=== PATIENT | male | born 1945 | race Caucasian/White ===

== ENCOUNTER 2019-08-29 10:42 | Inpatient (IN) | payer MEDICARE ==
[~2019-08-29] VITALS: Ht 154.9 cm; Wt 117.0 kg
[~2019-08-29 10:42] MED LIST: LIDOcaine 1% W/epiNEPHrine 1:100,000 20ml vial ONE
[2019-08-29] MEDS ORDERED: aspirin 81mg tab.chew PO ONE (10:50)
--- NOTE | 2019-08-29 11:01 | NUR ---
Pt found to be intermittently going into V-tach. Repeat EKG ordered
[2019-08-29 11:02] LABS: BASOPHILS # (AUTO) 0.1 X10'3 (0-0.2); BASOPHILS % (AUTO) 1.3 % (0-1); EOSINOPHILS # (AUTO) 0.2 X10'3 (0-0.9); EOSINOPHILS % (AUTO) 2.2 % (0-6); HEMATOCRIT 28.2 % (42.0-52.0); LYMPHOCYTES # (AUTO) 2.5 X10'3 (1.1-4.8); LYMPHOCYTES % (AUTO) 24.8 % (21-51); MEAN CORPUSCULAR HEMOGLOBIN 27.8 PG (27.0-31.0); MEAN CORPUSCULAR VOLUME 87.1 FL (78-98); MEAN PLATELET VOLUME 8.2 FL (7.4-10.4); MONOCYTES # (AUTO) 0.7 X10'3 (0-0.9); MONOCYTES % (AUTO) 6.4 % (2-12); NEUTROPHILS # (AUTO) 6.7 X10'3 (1.8-7.7); NEUTROPHILS % (AUTO) 65.3 % (42-75); PLATELET COUNT 210 X10'3 (140-440); RED BLOOD COUNT 3.24 X10'6 (4.70-6.10); RED CELL DISTRIBUTION WIDTH 18.4 % (11.5-14.5); WHITE BLOOD COUNT 10.2 X10'3 (4.5-11.0)
--- NOTE | 2019-08-29 11:05 | NUR ---
Following cardioversion, pt lost pulses. CPR initiated.
--- NOTE | 2019-08-29 11:05 | NUR ---
Pt complained of dizziness, then became unrespnosive. Pt in V-tach, and synchronized cardioversion performed.
--- NOTE | 2019-08-29 11:07 | NUR ---
ROSC obtained. Pt now responsive to verbal stimuli.
[2019-08-29] MEDS ORDERED: morphine 4 MG/ML inj SYRINge IV ONE (11:15)
[2019-08-29 11:19] LABS: ALANINE AMINOTRANSFERASE 19 U/L (12-78); ALBUMIN 3.2 G/DL (3.4-5.0); ALBUMIN/GLOBULIN RATIO 0.8 (1.1-1.5); ALKALINE PHOSPHATASE 90 IU/L (46-116); ANION GAP 16 (8-16); ASPARTATE AMINO TRANSFERASE 29 U/L (10-37); BILIRUBIN,TOTAL 0.2 MG/DL (0.1-1.0); BLOOD UREA NITROGEN 88 MG/DL (7-18); BUN/CREATININE RATIO 29.2 (5.4-32.0); CALCIUM 8.3 MG/DL (8.5-10.1); CHLORIDE 98 MMOL/L (99-107); CREATININE 3.01 MG/DL (0.60-1.10); GLUCOSE 211 MG/DL (70-104); SODIUM 137 MMOL/L (135-145); TOTAL CARBON DIOXIDE 22.7 MMOL/L (24-32); eGFR 20 ML/MIN
[2019-08-29] MEDS ORDERED: potassium 10mEq/100ml NS w/LIDOcaine (10mg/bag) IV ONE (11:25)
[2019-08-29 11:26] LABS: MAGNESIUM 2.3 MG/DL (1.5-2.4)
[2019-08-29] MEDS ORDERED: potassium Cl 10 mEq/100mL bag IV ONE (11:35)
[2019-08-29] MEDS: amiodarone/D5 360MG/200ML BAG 200 ML IV SCH ×4 (11:42→20:06)
[2019-08-29] MEDS: amiodarone 150mg/dext, iso-os 100 ML IV ONE ×2 (11:42→13:16)
--- NOTE | 2019-08-29 12:38 | NUR ---
CARMELA Everett at bedside to place central line.
[2019-08-29] MEDS ORDERED: METO25TA6 PO (15:05)
[2019-08-29] MEDS ORDERED: WARF2.5T PO (15:05)
[2019-08-29] MEDS ORDERED: LINA5TAB4 PO (15:05)
[2019-08-29] MEDS ORDERED: INSU100C4 SQ (15:05)
[2019-08-29] MEDS ORDERED: CETI10TA15 PO (15:05)
[2019-08-29] MEDS ORDERED: ASPI-611 PO (15:05)
[2019-08-29] MEDS ORDERED: INSU100V9 SQ (15:05)
[2019-08-29] MEDS ORDERED: LEVO25TA7 PO (15:05)
[2019-08-29] MEDS ORDERED: CHLO473M3 PO (15:05)
[2019-08-29] MEDS ORDERED: PANT-47 PO (15:05)
[2019-08-29] MEDS ORDERED: ATOR40TA71 PO (15:05)
[2019-08-29] MEDS ORDERED: GABA-530 PO (15:05)
[2019-08-29] MEDS ORDERED: CHOL100046 PO (15:05)
[2019-08-29] MEDS ORDERED: ZAR2.5T PO (15:05)
[2019-08-29] MEDS ORDERED: KETO120S6 TOP (15:05)
[2019-08-29] MEDS ORDERED: POTA20TA34 PO (15:05)
[2019-08-29] MEDS ORDERED: BUME2TAB7 PO (15:05)
[2019-08-29] MEDS ORDERED: WARF-65 PO (15:05)
[2019-08-29] MEDS ORDERED: DOCU-329 PO (15:05)
[2019-08-29] MEDS ORDERED: ALLO100T PO (15:05)
[2019-08-29] MEDS ORDERED: normal saline 1000ml 1,000 ML IV SCH (15:49)
[2019-08-29] MEDS ORDERED: bisacodyl 10mg suppository rectal RC PRN (15:50)
[2019-08-29] MEDS: K and/or MAG REPLACEMENT MC SCH (15:50)
[2019-08-29] MEDS ORDERED: dextrose 50%-water 50ml dispensing syringe IV PRN ×2 (15:50)
[2019-08-29] MEDS ORDERED: acetaminophen 650mg rectal suppository RC PRN (15:50)
[2019-08-29] MEDS ORDERED: MESSAGE TO PHARMACY PO ONE (15:50)
[2019-08-29] MEDS ORDERED: diphenhydrAMINE 25mg capsule PO PRN (15:50)
[2019-08-29] MEDS ORDERED: acetaminophen 325mg tablet PO PRN ×2 (15:50)
[2019-08-29] MEDS ORDERED: potassium Cl 20 mEq SR tablet PO PRN (15:50)
[2019-08-29] MEDS ORDERED: magnesium Cl slow-release 64mg tablet PO PRN (15:50)
[2019-08-29] MEDS ORDERED: potassium CL 10mEq/100ml bag 100 ML IV PRN ×2 (15:50)
[2019-08-29] MEDS ORDERED: mag hydrox/Alum hydrox/simeth 30ml oral suspension PO PRN (15:50)
[2019-08-29] MEDS ORDERED: glucagon, human recombinant 1mg kit SUBCUT PRN (15:50)
[2019-08-29] MEDS ORDERED: magnesium hydroxide 30ml (MOM) UD suspension PO PRN (15:50)
[2019-08-29] MEDS ORDERED: dextrose ORAL solution 15 GM/59 ML bottle PO PRN ×2 (15:50)
[2019-08-29] MEDS ORDERED: magnesium 2GM in 50ml NS 50 ML IV PRN (15:50)
[2019-08-29] MEDS ORDERED: magnesium 4gm in 100ml NS 100 ML IV PRN (15:50)
[2019-08-29] MEDS ORDERED: ondansetron/PF 4mg/2ml inj IV PRN (15:50)
[2019-08-29] MEDS ORDERED: morphine 2 MG/ML inj. syringe IV PRN ×2 (15:50)
[2019-08-29 17:00] VITALS: BP 95/58
--- NOTE | 2019-08-29 17:00 | NUR ---
Patient arrived to the ACCE unit. Patient is alert and oriented. Vitals were taken and patient stable. Rhythm strip completed when patient arrived and accucheck per orders. Noted that the Amiodarone gtt was due to have dose decreased and made this change. Assessment completed and assumed care of patient.
--- NOTE | 2019-08-29 17:34 | NUR ---
PAGER ID: [phone] MESSAGE: Dr. Fernandez-Patient on ACCE rm 310, new admit, pt is SR with PVCs, QT prolonged, went from 0.41 at 1215 to 0.52 1728. FYI. Patient on Amiodarone gtt
--- NOTE | 2019-08-29 17:35 | NUR ---
Noted on Rhythm strip that QT has become prolonged from 0.41 at approx 1200 to 0.52 at approx. [address] Fernandez and he had me contact Dr. Lam as well. Contacted Dr. Lam and left a message for him.
--- NOTE | 2019-08-29 17:45 | NUR ---
Dr. Lam called back and I gave report to him regarding patient with regards to prolonged QT. Dr. Lam gave order to give patient 2Grams of Magnesium.
[2019-08-29] MEDS ORDERED: magnesium 2GM in 50ml NS 50 ML IV ONE (17:55)
--- NOTE | 2019-08-29 18:05 | NUR ---
Problems reprioritized. Patient report given, questions answered & plan of care reviewed with ELLIE Houser.
[2019-08-29 18:24] VITALS: BP 124/54
--- NOTE | 2019-08-29 18:36 | NUR ---
Dr. Lam notified r/t 1.trops critical lab 2.86. expected no new orders. and no more trops drawn. 2. chest pain 07/07 new orders. nitro paste 2 inches for 12 hours and then remove. ok to give morphine now instead of PO pain medication norco.
[2019-08-29] MEDS ORDERED: nitroGLYCERIN 1gm ointment UD TP ONE (18:45)
[2019-08-29] MEDS: metoprolol tartrate 12.5mg (1/2 tablet) PO SCH (20:00)
--- NOTE | 2019-08-29 20:00 | NUR ---
Dr. Arias, notified, r/t elongated QT .52 pt currently on amiodarone drip 3rd bag at 16.67 ml/hr. new orders hold for 4 hours. will continue to monitor.
[2019-08-29] MEDS: pantoprazole 40mg Tablet.DR PO SCH (20:15)
[2019-08-29] MEDS: gabapentin 100mg capsule PO SCH (20:15)
[2019-08-29] MEDS: bumetanide 1mg tablet PO SCH (20:16)
[2019-08-29] MEDS: insulin glargine (Lantus) pen - multi-dose SQ SCH (20:40)
[2019-08-29] MEDS: HYDROcodone/acetaminophen 10/325mg tab PO PRN (20:52)
[2019-08-29] MEDS ORDERED: warfarin 1mg tablet PO ONE (21:00)
[2019-08-29] MEDS ORDERED: warfarin 1mg tablet PO SCH (21:00)
[2019-08-29 22:00] VITALS: BP 115/50
--- NOTE | 2019-08-30 01:03 | NUR ---
Dr. Arias notified. r/t after 4 hours hold of amiodarone drip new finding QT decreased to .48. pt denies chest pain. amiodarone drip d/c. will continue to monitor for arrhythmias. pt use c- pap at night, new orders cpap at night.
[2019-08-30 02:22] LABS: BASOPHILS # (AUTO) 0.1 X10'3 (0-0.2); EOSINOPHILS # (AUTO) 0.2 X10'3 (0-0.9); EOSINOPHILS % (AUTO) 2.4 % (0-6); HEMATOCRIT 23.3 % (42.0-52.0); HEMOGLOBIN 7.5 g/dl (14.0-17.9); LYMPHOCYTES % (AUTO) 14.5 % (21-51); MEAN CORPUSCULAR HEMOGLOBIN 27.7 PG (27.0-31.0); MEAN CORPUSCULAR HGB CONC 32.2 g/dL (33.0-36.5); MEAN CORPUSCULAR VOLUME 86.1 FL (78-98); MEAN PLATELET VOLUME 8.1 FL (7.4-10.4); MONOCYTES # (AUTO) 0.5 X10'3 (0-0.9); NEUTROPHILS # (AUTO) 5.4 X10'3 (1.8-7.7); NEUTROPHILS % (AUTO) 75.1 % (42-75); PLATELET COUNT 157 X10'3 (140-440); RED CELL DISTRIBUTION WIDTH 18.5 % (11.5-14.5); WHITE BLOOD COUNT 7.2 X10'3 (4.5-11.0)
[2019-08-30 02:28] LABS: ALANINE AMINOTRANSFERASE 26 U/L (12-78); ALBUMIN 2.8 G/DL (3.4-5.0); ALBUMIN/GLOBULIN RATIO 0.8 (1.1-1.5); ALKALINE PHOSPHATASE 79 IU/L (46-116); ANION GAP 11 (8-16); ASPARTATE AMINO TRANSFERASE 34 U/L (10-37); BILIRUBIN,TOTAL 0.3 MG/DL (0.1-1.0); BLOOD UREA NITROGEN 86 MG/DL (7-18); CALCIUM 8.3 MG/DL (8.5-10.1); CHLORIDE 99 MMOL/L (99-107); CHOL/HDL RATIO 3.1 (0.00-4.99); CHOLESTEROL 97 MG/DL (0-200); CREATININE 2.87 MG/DL (0.60-1.10); GLUCOSE 181 MG/DL (70-104); HDL CHOLESTEROL 31 MG/DL (35-60); LDL CHOLESTEROL 55 MG/DL (50-100); MAGNESIUM 2.7 MG/DL (1.5-2.4); PHOSPHORUS 5.8 MG/DL (2.3-4.5); POTASSIUM 3.2 MMOL/L (3.5-5.1); SODIUM 136 MMOL/L (135-145); TOTAL CARBON DIOXIDE 26.2 MMOL/L (24-32); TOTAL PROTEIN 6.4 G/DL (6.4-8.2); TRIGLYCERIDES 83 MG/DL (20-135); eGFR 22 ML/MIN
[2019-08-30 02:47] VITALS: BP 135/39
[2019-08-30] MEDS: potassium Cl 20 mEq SR tablet PO PRN ×3 (02:55→16:48)
[2019-08-30 06:00] VITALS: BP 115/56
--- NOTE | 2019-08-30 06:00 | NUR ---
I have received report from Susan ARGUETA and had the opportunity to ask questions and assume patient care.
--- NOTE | 2019-08-30 06:22 | NUR ---
Problems reprioritized. Patient report given, questions answered & plan of care reviewed with Rafael ARGUETA. Bedside report given
[2019-08-30] MEDS: aspirin 81mg tablet.DR PO SCH (07:26)
[2019-08-30] MEDS: bumetanide 1mg tablet PO SCH ×2 (07:31→20:21)
[2019-08-30] MEDS: allopurinol 100mg tablet PO SCH (07:31)
[2019-08-30] MEDS: pantoprazole 40mg Tablet.DR PO SCH ×2 (07:31→20:21)
[2019-08-30] MEDS: metolazone 2.5mg tablet PO SCH (07:31)
[2019-08-30] MEDS: levoTHYROXINE 25mcg tablet PO SCH (07:31)
[2019-08-30] MEDS: vitamin D (cholecalciferol) 1,000 unit tablet PO SCH (07:31)
[2019-08-30] MEDS: atorvastatin 20mg tablet PO SCH (07:31)
[2019-08-30] MEDS: metoprolol tartrate 12.5mg (1/2 tablet) PO SCH ×2 (07:32→20:20)
[2019-08-30] MEDS: docusate sod 250mg capsule PO SCH (07:32)
[2019-08-30] MEDS: K and/or MAG REPLACEMENT MC SCH (08:00)
[2019-08-30] MEDS ORDERED: non-formulary drug (Aspirin (Aspir 81) 1 TAB) PO SCH (08:00)
[2019-08-30] MEDS: amiodarone 200mg tablet PO SCH ×2 (08:20→20:21)
[2019-08-30 11:00] VITALS: BP 132/63
[2019-08-30] MEDS: insulin Lispro (HumaLOG) vial - multi-dose SQ SCH ×3 (13:04→20:56)
[2019-08-30 15:00] VITALS: BP 151/63
[2019-08-30] MEDS: HYDROcodone/acetaminophen 5mg/325mg tablet PO PRN (17:02)
[2019-08-30 18:00] VITALS: BP 156/66
--- NOTE | 2019-08-30 18:00 | NUR ---
Problems reprioritized. Patient report given, questions answered & plan of care reviewed with ELLIE Arroyo.
--- NOTE | 2019-08-30 18:10 | NUR ---
Patient in room MED 310. I have received report from ELLIE Wilson and had the opportunity to ask questions and assume patient care. Patient is resting comfortably in bed, just finished dinner. He is A&O x3, FUENTES and is appropriate.
--- NOTE | 2019-08-30 18:17 | NUR ---
Orienteer documentation: I have reviewed and agree with all interventions, assessments performed and documented by Katie ARGUETA.
[2019-08-30] MEDS: gabapentin 100mg capsule PO SCH (20:21)
[2019-08-30] MEDS: insulin glargine (Lantus) pen - multi-dose SQ SCH (20:54)
[2019-08-30] MEDS ORDERED: warfarin 1mg tablet PO ONE (21:00)
[2019-08-30] MEDS ORDERED: warfarin 2.5mg tablet PO SCH (21:00)
[2019-08-30 22:00] VITALS: BP 116/49
[2019-08-30] MEDS: HYDROcodone/acetaminophen 10/325mg tab PO PRN (22:55)
[2019-08-31 01:38] LABS: BASOPHILS # (AUTO) 0.1 X10'3 (0-0.2); BASOPHILS % (AUTO) 0.9 % (0-1); EOSINOPHILS # (AUTO) 0.2 X10'3 (0-0.9); EOSINOPHILS % (AUTO) 2.6 % (0-6); HEMATOCRIT 22.7 % (42.0-52.0); HEMOGLOBIN 7.4 g/dl (14.0-17.9); LYMPHOCYTES # (AUTO) 1.1 X10'3 (1.1-4.8); LYMPHOCYTES % (AUTO) 13.7 % (21-51); MEAN CORPUSCULAR HGB CONC 32.8 g/dL (33.0-36.5); MEAN CORPUSCULAR VOLUME 85.2 FL (78-98); MEAN PLATELET VOLUME 8.4 FL (7.4-10.4); MONOCYTES # (AUTO) 0.7 X10'3 (0-0.9); NEUTROPHILS # (AUTO) 5.8 X10'3 (1.8-7.7); NEUTROPHILS % (AUTO) 73.8 % (42-75); PLATELET COUNT 159 X10'3 (140-440); RED BLOOD COUNT 2.66 X10'6 (4.70-6.10); RED CELL DISTRIBUTION WIDTH 18.2 % (11.5-14.5); WHITE BLOOD COUNT 7.9 X10'3 (4.5-11.0)
[2019-08-31 01:49] LABS: ALANINE AMINOTRANSFERASE 21 U/L (12-78); ALBUMIN 2.7 G/DL (3.4-5.0); ALBUMIN/GLOBULIN RATIO 0.8 (1.1-1.5); ALKALINE PHOSPHATASE 73 IU/L (46-116); ANION GAP 11 (8-16); ASPARTATE AMINO TRANSFERASE 18 U/L (10-37); BILIRUBIN,TOTAL 0.4 MG/DL (0.1-1.0); BLOOD UREA NITROGEN 91 MG/DL (7-18); BUN/CREATININE RATIO 28.3 (5.4-32.0); CALCIUM 8.3 MG/DL (8.5-10.1); CHLORIDE 96 MMOL/L (99-107); CREATININE 3.22 MG/DL (0.60-1.10); GLUCOSE 229 MG/DL (70-104); MAGNESIUM 2.4 MG/DL (1.5-2.4); PHOSPHORUS 5.2 MG/DL (2.3-4.5); POTASSIUM 3.1 MMOL/L (3.5-5.1); SODIUM 134 MMOL/L (135-145); TOTAL CARBON DIOXIDE 27.3 MMOL/L (24-32); TOTAL PROTEIN 6.2 G/DL (6.4-8.2); eGFR 19 ML/MIN
[2019-08-31 02:00] VITALS: BP 116/47
[2019-08-31 06:00] VITALS: BP 120/56
--- NOTE | 2019-08-31 06:19 | NUR ---
Problems reprioritized. Patient report given, questions answered & plan of care reviewed with ELLIE Durant.
--- NOTE | 2019-08-31 06:24 | NUR ---
Patient in room MED 310. I have received report from ELLIE Arroyo and had the opportunity to ask questions and assume patient care.
[2019-08-31] MEDS: K and/or MAG REPLACEMENT MC SCH (08:00)
[2019-08-31] MEDS: metolazone 2.5mg tablet PO SCH (08:40)
[2019-08-31] MEDS: bumetanide 1mg tablet PO SCH (08:40)
[2019-08-31] MEDS: potassium Cl 20 mEq SR tablet PO PRN (08:40)
[2019-08-31] MEDS: levoTHYROXINE 25mcg tablet PO SCH (08:41)
[2019-08-31] MEDS: metoprolol tartrate 12.5mg (1/2 tablet) PO SCH (08:41)
[2019-08-31] MEDS: docusate sod 250mg capsule PO SCH (08:41)
[2019-08-31] MEDS: atorvastatin 20mg tablet PO SCH (08:42)
[2019-08-31] MEDS: pantoprazole 40mg Tablet.DR PO SCH (08:42)
[2019-08-31] MEDS: amiodarone 200mg tablet PO SCH (08:42)
[2019-08-31] MEDS: allopurinol 100mg tablet PO SCH (08:43)
[2019-08-31] MEDS: vitamin D (cholecalciferol) 1,000 unit tablet PO SCH (08:43)
[2019-08-31] MEDS: aspirin 81mg tablet.DR PO SCH (08:43)
[2019-08-31] MEDS: HYDROcodone/acetaminophen 5mg/325mg tablet PO PRN ×2 (08:44→16:04)
[2019-08-31] MEDS: insulin Lispro (HumaLOG) vial - multi-dose SQ SCH ×2 (08:49→13:22)
[2019-08-31 10:40] LABS: BASOPHILS # (AUTO) 0.1 X10'3 (0-0.2); BASOPHILS % (AUTO) 0.9 % (0-1); EOSINOPHILS # (AUTO) 0.3 X10'3 (0-0.9); EOSINOPHILS % (AUTO) 2.8 % (0-6); HEMATOCRIT 26.8 % (42.0-52.0); HEMOGLOBIN 8.6 g/dl (14.0-17.9); LYMPHOCYTES # (AUTO) 0.8 X10'3 (1.1-4.8); LYMPHOCYTES % (AUTO) 8.8 % (21-51); MEAN CORPUSCULAR HEMOGLOBIN 27.8 PG (27.0-31.0); MEAN CORPUSCULAR VOLUME 86.9 FL (78-98); MEAN PLATELET VOLUME 8.5 FL (7.4-10.4); MONOCYTES # (AUTO) 0.8 X10'3 (0-0.9); MONOCYTES % (AUTO) 8.4 % (2-12); NEUTROPHILS # (AUTO) 7.3 X10'3 (1.8-7.7); NEUTROPHILS % (AUTO) 79.1 % (42-75); PLATELET COUNT 192 X10'3 (140-440); RED BLOOD COUNT 3.09 X10'6 (4.70-6.10); RED CELL DISTRIBUTION WIDTH 17.9 % (11.5-14.5); WHITE BLOOD COUNT 9.3 X10'3 (4.5-11.0)
[2019-08-31 11:00] VITALS: BP 120/57
[2019-08-31] MEDS ORDERED: AMIO200T61 PO (13:20)
[2019-08-31 15:00] VITALS: BP 127/56
--- NOTE | 2019-08-31 15:00 | NUR ---
PAGER ID: [phone] MESSAGE: rm 310, pt. Steffen Moctezuma. Moni, the welfare case worker informed us that there is no home health available in [place]. would you still like to discharge pt.? please advise. ELLIE Liu [phone] Addendum: 08/31/19 at 1501 by Alexa Ponce RN would like to discharge still
--- NOTE | 2019-08-31 15:18 | NUR ---
PAGER ID: [phone] MESSAGE: 310, pt. Steffen Moctezuma. Anabel TUMBLER TENDER is d/c pt. warfarin. pt. was suppose to go home on both warfarin and amiodarone. please advise. ELLIE Liu [phone]
--- NOTE | 2019-08-31 16:49 | NUR ---
pt. discharged from facility at 1615. pt. was wheeled down to private vehicle accompanied by staff and his family. pt. signed all paperwork and understood it. RN handed the pt. a script for his medication to take to the [facility] pharmacy. pt. IV and IJ were d/c with the cannulas intact. pt. left with all belongings.
[2019-08-31] MEDS ORDERED: warfarin 1mg tablet PO ONE (21:00)
[2019-09-01] MEDS ORDERED: amiodarone 200mg tablet PO SCH (08:00)
== END 2019-08-31 18:11 | disposition home or self-care (01) | DRG 280 ==
LOC: ER 10:43 → ED HOLD 15:49 → MED 3N 17:09
PROVIDERS: ADMIT Family Medicine; ATTEND Family Medicine
PROC: 5A2204Z Restoration of Cardiac Rhythm, Single (ICD-10-PCS; principal; 2019-08-29)
PROC: 05HY33Z Insertion of Infusion Device into Upper Vein, Percutaneous Approach (ICD-10-PCS; 2019-08-29)
PROC: 5A12012 Performance of Cardiac Output, Single, Manual (ICD-10-PCS; 2019-08-29)
DX: I21.4 Non-ST elevation (NSTEMI) myocardial infarction (principal); I46.9 Cardiac arrest, cause unspecified; I50.43 Acute on chronic combined systolic (congestive) and diastolic (congestive) heart failure; I13.0 Hypertensive heart and chronic kidney disease with heart failure and stage 1 through stage 4 chronic kidney disease, or unspecified chronic kidney disease; N18.4 Chronic kidney disease, stage 4 (severe); Z68.42 Body mass index [BMI] 45.0-49.9, adult; I47.2 Ventricular tachycardia; E03.9 Hypothyroidism, unspecified; E11.22 Type 2 diabetes mellitus with diabetic chronic kidney disease; E66.01 Morbid (severe) obesity due to excess calories; E78.00 Pure hypercholesterolemia, unspecified; E78.5 Hyperlipidemia, unspecified; E87.6 Hypokalemia; R55 Syncope and collapse; R15.9 Full incontinence of feces; G47.33 Obstructive sleep apnea (adult) (pediatric); I25.10 Atherosclerotic heart disease of native coronary artery without angina pectoris; I48.91 Unspecified atrial fibrillation; Z66 Do not resuscitate; Z79.01 Long term (current) use of anticoagulants; Z79.4 Long term (current) use of insulin; Z82.49 Family history of ischemic heart disease and other diseases of the circulatory system; I25.2 Old myocardial infarction; Z82.5 Family history of asthma and other chronic lower respiratory diseases; Z87.11 Personal history of peptic ulcer disease; Z87.891 Personal history of nicotine dependence; Z95.1 Presence of aortocoronary bypass graft; Z98.52 Vasectomy status; Z98.49 Cataract extraction status, unspecified eye
CPT/HCPCS: 36415; 36556; 71045; 80053; 80061; 82948; 83036; 83735; 83880; 84100; 84443; 84484; 85025; 85610; 87081; 92960; 93005; 93306; 96365; 96375; 97162; 97530; 99291; G0378; J0282; J1815; J2270; J3475; J3480; J7030